=== PATIENT | male | born 1940 | race Caucasian/White ===

== ENCOUNTER 2018-06-02 10:51 | Inpatient (IN) | payer MEDICARE, BC ==
--- NOTE | 2018-06-02 11:28 | ED ---
Altered Mental Status - HPI Summary HPI Summary: A 77 y/o M with recent dementia dx presents to ED with c/o increased AMS onset past day. Per , the patient couldn't (or wouldn't) get up out of bed last night. This AM, he was able to get out of bed with assistance. Associated sx: dehydration. Denies: n/v/d, dysuria, cough. He has not been agitated and violent recently, but he has been more sleep recently. Last week, he had a mechanical fall in the snow and needed assistance getting up. No recent illness and no one at home is ill. Their daughter who is a nurse comes by to help, but otherwise, they do not have anyone coming to the house. - History Of Current Complaint Chief Complaint: EDAltMentalStatus Stated Complaint: WEAKNESS Time Seen by Provider: 06/02/18 11:02 Hx Obtained From: Family/[employer] - , Medical Records Onset/Duration: Still Present Timing: Constant Severity Initially: Moderate Severity Currently: Moderate Character: Confusion, Lethargy - sleepy Associated Signs And Symptoms: Negative: Nausea, Vomiting - Allergies/Home Medications Allergies/Adverse Reactions: Allergies Allergy/AdvReac Type Severity Reaction Status Date / Time No Known Allergies Allergy Verified 04/27/16 14:05 Home Medications: Home Medications Donepezil TAB* [Aricept 5 MG TAB*] 10 mg PO DAILY 06/02/18 [History Confirmed ] Escitalopram (NF) [Lexapro 10 mg (NF)] 10 mg PO DAILY 06/02/18 [History Confirmed 06/02/18] Irbesartan (NF) [Avapro (NF)] 300 mg PO DAILY 06/02/18 [History Confirmed ] Memantine TAB* [Namenda TAB*] 5 mg PO DAILY 06/02/18 [History Confirmed 06/02/18 ] QUEtiapine TAB* [Seroquel 25 MG TAB*] 75 mg PO DAILY 06/02/18 [History Confirmed 06/02/18] Rosuvastatin (NF) [Crestor (NF)] 20 mg PO QPM 06/02/18 [History Confirmed ] PMH/Surg Hx/FS Hx/Imm Hx Previously Healthy: No Endocrine/Hematology History: Denies: Hx Diabetes Cardiovascular History: Reports: Hx Hypertension - ON MEDS Denies: Hx Pacemaker/ICD History: Denies: Hx Renal Disease Sensory History: Reports: Hx Contacts or Glasses - readers, Hx Hearing Aid Opthamlomology History: Reports: Hx Contacts or Glasses - readers Neurological History: Reports: Other Neuro Impairments/Disorders - CVA or TIA Psychiatric History: Denies: Hx Panic Disorder - Cancer History Cancer Type, Location and Year: PROSTATE - PROSTECTOMY - Surgical History Surgery Procedure, Year, and Place: PROSTECTOMY;. ROTATOR CUFF SURGERY;. EYE SURGERIES - REPAIRED MACULAR HOLE &CATARACTS;. BIOPSIES;-TEMPORAL ARTHRITIS Infectious Disease History: No Infectious Disease History: Denies: Traveled Outside the [place] in Last 30 Days - Family History Family History: father: [place] - Social History Occupation: Works From/At Home - SELF Lives: With Family Alcohol Use: Daily Alcohol Amount: 3-4 beers per day Hx Substance Use: No Substance Use Type: Reports: None Hx Tobacco Use: No Smoking Status (MU): Never Smoked Tobacco Review of Systems Positive: Other - pos: dehydration. Negative: Fever, Chills Negative: Erythema Negative: Sore Throat Negative: Chest Pain Negative: Shortness Of Breath, Cough Negative: Abdominal Pain, Vomiting, Nausea Negative: dysuria, hematuria Negative: Myalgia, Edema Negative: Rash Neurological: Other - pos: confusion/AMS. neg: dizziness All Other Systems Reviewed And Are Negative: Yes Physical Exam - Summary Physical Exam Summary: Constitutional: Well-developed, Well-nourished, Alert. (-) Distressed. Pt gives inappropriate answers but there is no focal deficits. With coaching he is able to perform tasks. Skin: Warm, Dry HENT: Normocephalic; Atraumatic Eyes: Conjunctiva normal Neck: Musculoskeletal ROM normal neck. (-) JVD, (-) Stridor, (-) Tracheal deviation Cardio: Rhythm regular, rate normal, Heart sounds normal; Intact distal pulses; The pedal pulses are 2+ and symmetric. Radial pulses are 2+ and symmetric. (-) Murmur Pulmonary/Chest wall: Effort normal. (-) Respiratory distress, (-) Wheezes, (-) Rales Abd: Soft. (-) Tenderness, (-) Distension, (-) Guarding, (-) Rebound Musculoskeletal: (-) Edema Lymph: (-) Cervical adenopathy Neuro: Alert, Oriented x3, Strength normal, Cranial nerves II-XII are grossly intact. (-) Dysmetria, (-) Nystagmus, (-) Ataxia by finger to nose testing, (-) Sensory deficit. Pt gives inappropriate answers but there is no focal deficits. With coaching he is able to perform tasks. Psych: Mood and affect Normal Triage Information Reviewed: Yes Vital Signs On Initial Exam: Initial Vitals Temp Pulse Resp BP Pulse Ox 98 F 77 18 140/80 95 06/02/18 11:04 06/02/18 11:04 06/02/18 11:04 06/02/18 11:04 06/02/18 11:04 Vital Signs Reviewed: Yes - [place] Coma Scale Best Eye Response: 4 - Spontaneous Best Motor Response: 6 - Obeys Commands Best Verbal Response: 5 - Oriented Coma Scale Total: 15 Diagnostics - Vital Signs Vital Signs Temp Pulse Resp BP Pulse Ox 06/02/18 11:04 98 F 77 18 140/80 95 - Laboratory Result Diagrams: 06/02/18 12:14 06/02/18 12:14 Lab Statement: Any lab studies that have been ordered have been reviewed, and results considered in the medical decision making process. - CT BRAIN CT CT Interpretation Completed By: Radiologist Summary of CT Findings: IMPRESSION: Central and cortical atrophy. There is no evidence of intracranial mass or hemorrhage. ED provider has reviewed this report. - EKG 11:27 Cardiac Rate: NL - 87bpm EKG Rhythm: Sinus Rhythm Summary of EKG Findings: no STEMI Re-Evaluation - Re-Evaluation first re-eval Re-Evaluation Time: 16:15 Change: Worse Comment: Patient is getting agitated. has agreed to keep him for observation tonight to evaluate his urine and rule out UTI. Altered Mental Statu Course/Dx - Course Course Of Treatment: Pt is a 77 y/o M with recent dementia dx presenting with increased AMS onset past day. Per , the patient couldn't (or wouldn't) get up out of bed last night. This AM, he was able to get out of bed with assistance. Associated sx: dehydration. Denies: n/v/d, dysuria, cough. He has not been agitated and violent recently, but he has been more sleepy recently. Their daughter who is a nurse comes by to help, but otherwise, they do not have anyone coming to the house. Flu is negative. Test results with no significant abnormalities except for elevated WBC count. Upon re-evaluation patient is getting agitated. Patients has agreed to keep him for observation tonight to evaluate his urine and rule out UTI. Patient did not allow for successful straight catheterization and provided a contaminated urine sample in hat with stool and urine. Rule out UTI. We discussed patient care with Dr. Mejia, hospitalist, and they agreed to admit the patient to [facility] [place]. Patient will be admitted to [facility] to rule-out UTI. Dx delirium and elevated WBC count. The patient is agreeable with this plan. - Diagnoses Provider Diagnoses: Delirium, Elevated WBC count - Provider Notifications Discussed Care Of Patient With: Eliu Mejia Time Discussed With Above Provider: 16:30 Instructed by Provider To: Admit As Inpatient Discharge - Sign-Out/Discharge Documenting (check all that apply): Patient Departure - admit to [facility] Patient Received Moderate/Deep Sedation with Procedure: No - Discharge Plan Condition: Stable Disposition: ADMITTED TO [facility] Referrals: Kvng Leslie MD [Primary Care Provider] - 2 Days Additional Instructions: Return to the emergency department for changing or worsening symptoms. Follow up with your primary care provider in 2-3 days. - Attestation Statements Document Initiated by Scribe: Yes Documenting Scribe: Lyn Rubio Provider For Whom Scribe is Documenting (Include Credential): Dr. Joseph Guerrero MD Scribe Attestation: Lyn Manuel, scribed for Dr. Joseph Guerrero MD on 06/02/18 at 1620. Status of Scribe Document: Ready
[2018-06-02 12:22] LABS: ABS Basophils 0.1 10^3/ul (0-0.2); ABS Eosinophils 0 10^3/ul (0-0.6); ABS Lymphocytes 0.8 10^3/ul (1.0-4.8); ABS Neutrophils 10.1 10^3/ul (1.5-7.7); ABS Nucleated RBC 0 10^3/ul; Eosinophil % 0.4 %; Hematocrit 44 % (42-52); Hemoglobin 14.4 g/dl (14.0-18.0); Mean Corpuscular HGB Conc 33 g/dl (31-36); Mean Corpuscular Hemoglobin 28 pg (27-31); Mean Corpuscular Volume 86 fL (80-94); Mean Platelet Volume 8.5 fL (7.4-10.4); Nucleated Red Blood Cells % 0; Platelet Count 227 10^3/ul (150-450); Red Blood Count 5.13 10^6/ul (4.00-5.40); Red Cell Distribution Width 15 % (10.5-15)
[2018-06-02 12:40] LABS: ALT 44 U/L (7-52); Albumin 3.6 g/dL (3.2-5.2); Albumin/Globulin Ratio 0.8 (1-3); Alkaline Phosphatase 236 U/L (34-104); Blood Urea Nitrogen 22 mg/dL (6-24); CO2 Carbon Dioxide 25 mmol/L (22-32); Calcium 8.9 mg/dL (8.6-10.3); Chloride 104 mmol/L (101-111); EGFR African American 73.9 (>60); EGFR Non-African American 61.1 (>60); Globulin 4.6 g/dL (2-4); Glucose 172 mg/dL (70-100); Sodium 133 mmol/L (135-145); Total Protein 8.2 g/dL (6.4-8.9)
[2018-06-02 12:41] LABS: Troponin I 0.01 ng/mL (<0.04)
[2018-06-02 13:25] LABS: TSH (Thyroid Stimulating Horm) 1.13 mcIU/mL (0.34-5.60)
[2018-06-02 13:49] LABS: Anion Gap 4 mmol/L (2-11)
[2018-06-02] MEDS ORDERED: NS 0.9% 1000 ML** 2,000 ML IV ONE (14:00)
[2018-06-02 14:44] LABS: Influenza A Molecular NEGATIVE (Negative); Influenza B Molecular NEGATIVE (Negative)
[2018-06-02] MEDS ORDERED: Haloperidol TAB* 5 MG PO ONE (16:20)
[2018-06-02] MEDS ORDERED: Acetaminophen TAB* 325 MG PO PRN (17:24)
[2018-06-02] MEDS ORDERED: hydrALAZINE IV* 20 MG/ML VIAL IV SLOW PU PRN (18:39)
[2018-06-02 18:49] LABS: Magnesium 2.2 mg/dL (1.9-2.7); Potassium Redraw 3.9 mmol/L (3.5-5.0)
--- NOTE | 2018-06-02 21:03 | HP ---
CC: Dr. Kvng Leslie; Dr. Teja Beltran * MEDICINE HISTORY AND PHYSICAL: DATE OF ADMISSION: 06/02/18 PROVIDER: Ailyn Aldrich NP ATTENDING PHYSICIAN: Dr. Mejia * (dictated by Ailyn Aldrich NP). PRIMARY CARE PROVIDER: Dr. Kvng Leslie. OUTPATIENT NEUROLOGIST: Dr. Teja Beltran. CHIEF COMPLAINT: Altered mental status and weakness. HISTORY OF PRESENT ILLNESS: Mr. Beth is a 77-year-old male who presents today with concern for increased confusion and decline in ADLs as of yesterday. At baseline, this gentleman does have dementia, but per his who provides the history for this encounter, at baseline she is able to help him by prompting him with eating and self-care and he is able to do most of it on his own with verbal prompts. However, she reports that since yesterday, he is requiring more assistance getting out of bed, having actually refused to get out of bed yesterday. Today, he was unable to do so on his own, requiring heavy assist. He also was not responding like he normally does and appears to be more delusional than usual. She thinks it is secondary to dehydration, stating that he does eat and drink, but probably does not drink as much as he should. She reports that last week he did have a mechanical fall and a month ago he also had a fall; however, she provides all care on her own, has no outside agencies helping her. Her daughter and other family members do assist when able. She denies that he has had any recent fever, chills, cough, or cold or flu symptoms that she has noticed. She denies that he has had any verbal complaints of anything or appeared to be uncomfortable. Here in the ER, Mr. Beth became somewhat combative as the clinical staff attempted the workup including attempts to get urine sample. He was noted to have mild leukocytosis. Given this acute change, his living environment and presence of leukocytosis, Hospital Medicine was consulted for admission. PAST MEDICAL HISTORY: 1. Dementia. 2. Hypertension. 3. Hyperlipidemia. 4. History of prostate cancer, status post prostatectomy. 5. History of rotator cuff repair. HOME MEDICATIONS: 1. Memantine 5 mg daily. 2. Irbesartan 300 mg daily. 3. Escitalopram 10 mg daily. 4. Donepezil 10 mg daily. 5. Quetiapine 75 mg daily. 6. Rosuvastatin 20 mg q.p.m. ALLERGIES: No known allergies. FAMILY HISTORY: His reports that the patient's mother had history of heart failure and dementia and his father had history of prostate cancer. SOCIAL HISTORY: She denies that he ever was a smoker. She reports that he was previously a person who drank alcohol, but has not done so in several months. Denies any history of illicit drug use. Again, she is his primary e m assembler. She does have a daughter who lives nearby and other family who do attempt to help. 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 His healthcare proxies are his and his daughter, Laurel Urbina. REVIEW OF SYSTEMS: Limited and mostly unobtainable secondary to dementia. Any obtainable history was given by his and is included in the HPI. PHYSICAL EXAMINATION VITAL SIGNS: Temperature 98, pulse rate 82, respiratory rate 26, blood pressure 176/82, and O2 saturation is 91% on room air. HEENT: Head is atraumatic, normocephalic. Pupils are equal, round, and reactive to light. Extraocular movements are intact. The patient does not allow me to examine oral cavity. NECK: Full range of motion noted to the neck. No JVD noted. No lymphadenopathy appreciated. LUNGS: Clear anteriorly without notable wheezes or rales. He does not cooperate with allowing for posterior lung assessment. CARDIAC: Regular rate and rhythm with normal S1, S2 heart sounds. No murmur appreciated. No peripheral edema noted. Distal pulses are 2+ and symmetric. ABDOMEN: Soft, protuberant, but nontender with no guarding or rebound tenderness. No hepatosplenomegaly noted. MUSCULOSKELETAL: There is active movement of all 4 extremities as there is no clubbing or cyanosis. NEURO: He is alert. He is intermittently responsive to his name. He does not cooperate with neuro exam. He appears to have equal strength in bilateral hands as evidenced by gripping on my hands. He is observed moving both of his legs. Speech is somewhat incoherent and inappropriate. Conversation does not match what is being discussed. SKIN: Limited in assessment, but no visible skin abnormalities to the extremities that I am able to see. DIAGNOSTIC STUDIES/LAB DATA: CBC: WBC 12.0, hemoglobin 14.4, hematocrit 44, platelet count 227. CMP: Sodium 133, potassium not run, chloride 104, carbon dioxide 25, BUN 22, creatinine 1.16, glucose 172, lactic acid 1.3, calcium 8.9. Total bilirubin is 1, ALT 44, alk phos 236. Troponin 0.01. TSH is 1.13. Flu swab negative. CT brain shows central and cortical atrophy with no evidence of intracranial mass or hemorrhage. EKG shows sinus rhythm with abnormal R-wave progression, rate of 87. No significant ST or T-wave changes. Old medical records were reviewed. ASSESSMENT AND PLAN: This is a 77-year-old male, who presents today with concern for altered mental status and weakness with a leukocytosis that may be indicative of an acute infection or a process. He will be admitted under observation. Plan is as follows: 1. Altered mental status. Source is unclear. This may represent a developing infection. With his tachypnea and hypoxia, although this may be secondary to the patient's agitation, I will also obtain a chest x-ray to evaluate for pulmonary processes. Some of his labs have hemolyzed. We will reattempt them possibly in the morning if necessary, also checking a B12 and thiamine level as well as getting a mag level to fully evaluate for electrolyte and vitamin deficiencies. Staff has been unable to obtain a urine here in the ER and he did not cooperate with a straight cath and it was difficult to advance the catheter to obtain the urine specimen likely because of his history of prostate cancer. We will try a condom catheter, but may have to reattempt to straight cath if unable to obtain the urine. We will perform neuro checks, continue his home medications of donepezil, memantine, and continue to monitor closely. 2. Weakness. This is likely secondary to his altered mental status. He has had some falls recently. He is actively moving all extremities. Per his , he is walking with no guarding or evidence of joint instability or acute pain. We will attempt to try a PT and OT eval to see if there any supportive techniques or services that we can offer to his when the patient is well enough to return home if that should be the case. 3. Dementia. Again, we will continue his home donepezil, memantine, as well as his Seroquel and Celexa as he has had behavioral disturbances. He did receive Haldol here in the ER due to combative behavior. I will hold on ordering any further medications in the interim with the hope that his usual Seroquel and other medications will be enough for him. However, he is in a different environment, so should he need chemical restraint, we will evaluate the need in that moment and attempt redirection before utilizing any further Haldol. He may also benefit from an increase in his Seroquel or additional agents. 4. Leukocytosis. This may be reactive to recent illness or falls, but it may also be secondary to acute illness. Again, we will evaluate for causes as per above. 5. Hypertension. He is currently hypertensive likely secondary to agitation. Continue home irbesartan. Consider addition of p.r.n. hydralazine as needed if the patient remains significantly hypertensive. 6. Hyperlipidemia. Continue rosuvastatin. 7. History of prostate cancer. Follow up as an outpatient as directed. 8. FEN: Heart-healthy diet. 9. DVT prophylaxis: Subcu Lovenox. 10. Code status: He is a full code. I did discuss the MOLST form with his and she would like it discuss it further with her family. She was given a copy and we discussed it verbally and went through the document and let her know that we would be available to further discuss if she had any further questions. 11. Disposition: Unclear at this time. He came from home. The goal would be to get him back to his baseline so that his would be able to help care for him safely at home. We may need to consider subacute rehab or placement should there be concern for home safety. TIME SPENT: Approximately 65 minutes was spent on this admission, greater than half that time was spent [id number] with the patient and his obtaining history and physical, performing physical examination, and reviewing the plan of care. Plan of care was also reviewed with my attending, Dr. Mejia, who is in agreement. AILYN ALDRICH, CAMPOS [id number]/CPS #: [id number] EDITH
[2018-06-02] MEDS: Atorvastatin* 40 MG TAB PO SCH (22:44)
[2018-06-02] MEDS: Enoxaparin(*) 40 MG/0.4 ML SYR SUBCUT SCH (22:44)
[2018-06-02 23:20] LABS: Urine Appearance Cloudy; Urine Bacteria Absent (Absent); Urine Bilirubin Negative (Negative); Urine Blood 2+ (Negative); Urine Color Yellow; Urine Glucose 2+(150 mg/dL) (Negative); Urine Ketones Negative (Negative); Urine Nitrite Negative (Negative); Urine Protein Negative (Negative); Urine Red Blood Cell 3+(>10/hpf) (Absent); Urine Specific Gravity 1.024 (1.010-1.030); Urine Squamous Epithelial Cell Present (Absent); Urine Urobilinogen Negative (Negative); Urine White Blood Cell Trace(0-5/hpf) (Absent)
[2018-06-03 07:21] LABS: ABS Basophils 0 10^3/ul (0-0.2); ABS Eosinophils 0.1 10^3/ul (0-0.6); ABS Lymphocytes 1.3 10^3/ul (1.0-4.8); ABS Monocytes 1.1 10^3/ul (0-0.8); ABS Neutrophils 8.2 10^3/ul (1.5-7.7); ABS Nucleated RBC 0 10^3/ul; Hematocrit 42 % (42-52); Hemoglobin 14.1 g/dl (14.0-18.0); Lymphocyte % 12.5 %; Mean Corpuscular HGB Conc 34 g/dl (31-36); Mean Corpuscular Hemoglobin 29 pg (27-31); Mean Corpuscular Volume 85 fL (80-94); Mean Platelet Volume 7.7 fL (7.4-10.4); Nucleated Red Blood Cells % 0.1; Platelet Count 185 10^3/ul (150-450); Red Blood Count 4.93 10^6/ul (4.00-5.40); Red Cell Distribution Width 15 % (10.5-15); White Blood Count 10.8 10^3/ul (3.5-10.8)
[2018-06-03 07:38] LABS: BUN/Creatinine Ratio 16.2 (8-20); Calcium 9.1 mg/dL (8.6-10.3); EGFR African American 82.7 (>60); EGFR Non-African American 68.3 (>60)
[2018-06-03] MEDS: QUEtiapine TAB* 25 MG PO SCH ×3 (10:17→22:05)
[2018-06-03] MEDS: Donepezil TAB* 5 MG PO SCH (10:17)
[2018-06-03] MEDS: Citalopram TAB* 20 MG PO SCH (10:17)
[2018-06-03] MEDS: Losartan TAB* 25 MG PO SCH (10:17)
[2018-06-03] MEDS: Memantine TAB* 5 MG PO SCH (10:17)
--- NOTE | 2018-06-03 12:55 | PN ---
Subjective Date of Service: 06/03/18 Interval History: Mr. Beth is not able to offer meaningful complaint today but appears in no acute distress. Objective Active Medications: Acetaminophen (Tylenol Tab*) 650 mg PO Q4H PRN Atorvastatin Calcium (Lipitor*) 40 mg PO QPM BRAEDEN Citalopram Hydrobromide (Celexa Tab*) 20 mg PO DAILY BRAEDEN Donepezil HCl (Aricept Tab*) 10 mg PO DAILY BRAEDEN Enoxaparin Sodium (Lovenox(*)) 40 mg SUBCUT Q24H BRAEDEN Hydralazine HCl (Apresoline Iv*) 5 mg IV SLOW PU Q6H PRN Losartan Potassium (Cozaar Tab*) 100 mg PO DAILY BRAEDEN Memantine (Namenda Tab*) 5 mg PO DAILY BRAEDEN Quetiapine Fumarate (Seroquel Tab*) 75 mg PO BEDTIME BRAEDEN Vital Signs - 8 hr 06/03/18 06/03/18 07:15 11:33 Temperature 98.2 F 98.0 F Pulse Rate 77 77 Respiratory 20 20 Rate Blood Pressure 140/65 124/68 (mmHg) O2 Sat by Pulse 97 98 Oximetry Oxygen Devices in Use Now: None Appearance: Male lying in bed in NAD Eyes: No Scleral Icterus Ears/Nose/Mouth/Throat: Mucous Membranes Moist Respiratory: Symmetrical Chest Expansion and Respiratory Effort, Clear to Auscultation Cardiovascular: NL Sounds; No Murmurs; No JVD, No Edema Abdominal: NL Sounds; No Tenderness; No Distention Extremities: No Edema Skin: No Rash or Ulcers Neurological: - - Alert, mumbles when spoken to, moves all extremities spontaneously Nutrition: Taking PO's Result Diagrams: 06/03/18 06:52 06/03/18 06:52 Microbiology and Other Data: . Assess/Plan/Problems-Billing Assessment: Mr. Beth is a 78 yo M with a PMH of dementia and HTN who was admitted on with delirium and weakness. - Patient Problems (1) Delirium Comment: - ? toxic metabolic encephalopathy though no inciting cause found - CT brain negative. No evidence of infection, UA negative, afebrile. (2) HLD (hyperlipidemia) Comment: - Continue atorvastatin (3) Hypertension Comment: - BP 120-130s - Continue losartan (4) Dementia Comment: - Continue namenda and home seroquel - Supportive care (5) DVT prophylaxis Comment: - Lovenox (6) Full code status Comment: Status and Disposition: Convert to inpatient. Anticipate need for SNF.
[2018-06-03] MEDS: Atorvastatin* 40 MG TAB PO SCH (18:01)
[2018-06-03] MEDS: Enoxaparin(*) 40 MG/0.4 ML SYR SUBCUT SCH (18:01)
--- NOTE | 2018-06-04 07:20 | PN ---
Subjective Date of Service: 06/04/18 Interval History: Mr. Beth is up and ambulating. He offers no complaint when asked. Objective Active Medications: Acetaminophen (Tylenol Tab*) 650 mg PO Q4H PRN Atorvastatin Calcium (Lipitor*) 40 mg PO QPM BRAEDEN Citalopram Hydrobromide (Celexa Tab*) 20 mg PO DAILY BRAEDEN Donepezil HCl (Aricept Tab*) 10 mg PO DAILY BRAEDEN Enoxaparin Sodium (Lovenox(*)) 40 mg SUBCUT Q24H BRAEDEN Hydralazine HCl (Apresoline Iv*) 5 mg IV SLOW PU Q6H PRN Losartan Potassium (Cozaar Tab*) 100 mg PO DAILY BRAEDEN Memantine (Namenda Tab*) 5 mg PO DAILY BRAEDEN Quetiapine Fumarate (Seroquel Tab*) 75 mg PO BEDTIME BRAEDEN Vital Signs: Temp Pulse Resp BP Pulse Ox 98.3 F 82 19 122/55 94 06/04/18 03:06 06/04/18 03:06 06/04/18 03:06 06/04/18 03:06 06/04/18 03:06 Oxygen Devices in Use Now: None Appearance: Male lying in bed in NAD Eyes: No Scleral Icterus Ears/Nose/Mouth/Throat: Mucous Membranes Moist Neck: Trachea Midline Respiratory: Symmetrical Chest Expansion and Respiratory Effort, Clear to Auscultation Cardiovascular: NL Sounds; No Murmurs; No JVD, No Edema Abdominal: NL Sounds; No Tenderness; No Distention Extremities: No Edema Skin: No Rash or Ulcers Neurological: NL Muscle Strength and Tone, - - Alert, oriented to self Nutrition: Taking PO's Result Diagrams: 06/03/18 06:52 06/03/18 06:52 Microbiology and Other Data: . Assess/Plan/Problems-Billing Assessment: Mr. Beth is a 78 yo M with a PMH of dementia and HTN who was admitted on with delirium and weakness who now appears back to baseline per . - Patient Problems (1) Delirium Comment: - Resolved - ? toxic metabolic encephalopathy though no inciting cause found - CT brain negative. No evidence of infection, UA negative, afebrile. (2) HLD (hyperlipidemia) Comment: - Continue atorvastatin (3) Hypertension Comment: - BP 120-130s - Continue losartan (4) Dementia Comment: - Continue namenda and home seroquel - Supportive care (5) DVT prophylaxis Comment: - Lovenox (6) Full code status Comment: Status and Disposition: Discharge to home with .
[2018-06-04] MEDS: Citalopram TAB* 20 MG PO SCH (09:04)
[2018-06-04] MEDS: Donepezil TAB* 5 MG PO SCH (09:04)
[2018-06-04] MEDS: Losartan TAB* 25 MG PO SCH (09:04)
[2018-06-04] MEDS: Memantine TAB* 5 MG PO SCH (09:05)
[2018-06-04] MEDS: Enoxaparin(*) 40 MG/0.4 ML SYR SUBCUT SCH (17:20)
[2018-06-04] MEDS: Atorvastatin* 40 MG TAB PO SCH (17:20)
--- NOTE | 2018-06-04 19:50 | DS ---
CC: Dr. Leslie * [facility] MEDICINE DISCHARGE SUMMARY: DATE OF ADMISSION: 06/02/18 DATE OF DISCHARGE: 06/04/18 PRIMARY CARE PHYSICIAN: Dr. Leslie. ATTENDING PHYSICIAN: Dr. Aguilar * (dictation provided by Kimberlyn Cox NP). PRIMARY DIAGNOSIS: Toxic metabolic encephalopathy, unclear cause. SECONDARY DIAGNOSES: 1. Advanced dementia. 2. Hypertension. 3. Hyperlipidemia. 4. History of prostate cancer. 5. History of rotator cuff repair. MEDICATIONS: At the time of discharge are: 1. Memantine 5 mg p.o. daily. 2. Irbesartan 300 mg p.o. daily. 3. Escitalopram 10 mg p.o. daily. 4. Donepezil 10 mg p.o. daily. 5. Quetiapine 75 mg p.o. daily. 6. Rosuvastatin 20 mg p.o. q.p.m. HOSPITAL COURSE: Mr. Beth is a 78-year-old male with past medical history of advanced dementia who presented to the hospital on 06/02/18 with concern for altered mental status and weakness. Please see the dictated H and P from Gabriella Flores NP, for complete details. In brief, the patient's reported that since the day prior to admission he had been requiring more assistance to get out of bed and as of the day of admission was unable to do so on his own. He is also not responding as he normally would and has seemed more delusional. He has advanced dementia at baseline and is minimally interactive. In the emergency room, Mr. Beth had labs which showed mildly elevated white blood cell count of 12.0, but the remainder of his labs were unremarkable. His urinalysis showed no evidence of infection. His flu swab was negative. CT brain showed no intracranial mass or hemorrhage. Chest x-ray showed no acute process. Mr. Beth was observed in the hospital. After hydration, he was somewhat more interactive and able to walk a few steps yesterday. Today, he has been able to ambulate down the hallway with the use of a walker and significant prompting and appears to be back to baseline. It is my suspicion that he had toxic metabolic encephalopathy perhaps related to dehydration or early viral illness, the workup here has been negative. Fortunately, he is back to baseline. His family will take him home today. DISPOSITION: To home. DIET: Regular. ACTIVITY: As tolerated. FOLLOWUP PLANS: Please follow up with Dr. Leslie per routine within a week after this hospitalization. KIMBERLYN COX NP [id number]/CPS #: [id number] ADDENDUM: Patient was unable to get into the car at the time of attempted discharge. Family not able to care for patient at home and are opting for usp placement with comfort care. EDITH
[2018-06-04] MEDS: QUEtiapine TAB* 25 MG PO SCH (21:54)
[2018-06-05] MEDS: Citalopram TAB* 20 MG PO SCH (08:45)
[2018-06-05] MEDS: Donepezil TAB* 5 MG PO SCH (08:45)
[2018-06-05] MEDS: Losartan TAB* 25 MG PO SCH (08:45)
[2018-06-05] MEDS: Memantine TAB* 5 MG PO SCH (08:45)
--- NOTE | 2018-06-05 13:15 | PN ---
Subjective Date of Service: 06/05/18 Interval History: Mr. Beth is not able to offer complaint but appears to be in NAD Objective Active Medications: Acetaminophen (Tylenol Tab*) 650 mg PO Q4H PRN Atorvastatin Calcium (Lipitor*) 40 mg PO QPM [facility]RA[facility] Citalopram Hydrobromide (Celexa Tab*) 20 mg PO DAILY BRAEDEN Donepezil HCl (Aricept Tab*) 10 mg PO DAILY BRAEDEN Enoxaparin Sodium (Lovenox(*)) 40 mg SUBCUT Q24H BRAEDEN Hydralazine HCl (Apresoline Iv*) 5 mg IV SLOW PU Q6H PRN Losartan Potassium (Cozaar Tab*) 100 mg PO DAILY BRAEDEN Memantine (Namenda Tab*) 5 mg PO DAILY BRAEDEN Quetiapine Fumarate (Seroquel Tab*) 75 mg PO BEDTIME BRAEDEN Vital Signs: Temp Pulse Resp BP Pulse Ox 98.1 F 85 20 139/85 93 06/05/18 11:51 06/05/18 11:51 06/05/18 11:51 06/05/18 11:51 06/05/18 11:51 Oxygen Devices in Use Now: None Appearance: Male lying in bed in NAD Eyes: No Scleral Icterus Ears/Nose/Mouth/Throat: Mucous Membranes Moist Neck: Trachea Midline Respiratory: Symmetrical Chest Expansion and Respiratory Effort, Clear to Auscultation Cardiovascular: NL Sounds; No Murmurs; No JVD, No Edema Abdominal: NL Sounds; No Tenderness; No Distention Extremities: No Edema Skin: No Rash or Ulcers Neurological: NL Muscle Strength and Tone, - - Alert, not oriented Nutrition: Taking PO's Result Diagrams: 06/03/18 06:52 06/03/18 06:52 Microbiology and Other Data: . Assess/Plan/Problems-Billing Assessment: Mr. Beth is a 78 yo M with a PMH of dementia and HTN who was admitted on with delirium and weakness who now appears back to baseline per . - Patient Problems (1) Delirium Comment: - Resolved - ? toxic metabolic encephalopathy though no inciting cause found - CT brain negative. No evidence of infection, UA negative, afebrile. (2) HLD (hyperlipidemia) Comment: - Continue atorvastatin (3) Hypertension Comment: - BP 120-130s - Continue losartan (4) Dementia Comment: - Continue namenda and home seroquel - Supportive care (5) DVT prophylaxis Comment: - Lovenox (6) Full code status Comment: Status and Disposition: unable to take care of patient at home, unable to transport home. Family now opting for comfort care due to advanced dementia.
[2018-06-05] MEDS: Atorvastatin* 40 MG TAB PO SCH (17:55)
[2018-06-05] MEDS: Enoxaparin(*) 40 MG/0.4 ML SYR SUBCUT SCH (18:00)
[2018-06-05] MEDS: QUEtiapine TAB* 25 MG PO SCH (19:28)
--- NOTE | 2018-06-05 23:08 | CONSULT ---
Palliative / Hospice Consult Ordering Provider: Kimberlyn Cox - PCP-Mariama - Subjective Code Status: DNR Advance Directives Location: With Family MOL[facility] Part A Completed: Yes - on chart MOLST Part E Completed:: Yes - on chart - History or Present Illness History or Present Illness: 77 yo male with severe dementia presented to ER with increased confusion. felt his dementia had been rapidly progressing over the last few days. He has had 2 falls over the last month. PMH is significant for HTN, hyperlipidemia, prostate ca in 2002 and sleep apnea. All history is from the and old records pt is unable to contribute because of his dementia. No tobacco use, some etoh use years earlier no drug use. 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 Ekg inf PA old, CXR neg, CT brain central and cortical hypertrophy. BUN/Cr 17/1.05 egfr 68.3,alk phos 236, tprot 8.2 & alb 3.6- last 3 results were hemolyzed. describes as non verbal, sleeping more, decreased appetite, not feeding himself anymore, not continent, he will wander at times and has hallucinations at times. Was being discharged yesterday but pt would not get in the car and yelled No was brought back to the hospital. No obvious illness has been found for his sudden behavioral change. Lab Values: Laboratory Last Values WBC 10.8 10^3/ul (3.5-10.8) 06/03/18 06:52 RBC 4.93 10^6/ul (4.00-5.40) 06/03/18 06:52 Hgb 14.1 g/dl (14.0-18.0) 06/03/18 06:52 Hct 42 % (42-52) 06/03/18 06:52 MCV 85 fL (80-94) 06/03/18 06:52 MCH 29 pg (27-31) 06/03/18 06:52 MCHC 34 g/dl (31-36) 06/03/18 06:52 RDW 15 % (10.5-15) 06/03/18 06:52 Plt Count 185 10^3/ul (150-450) 06/03/18 06:52 MPV 7.7 fL (7.4-10.4) 06/03/18 06:52 Neut % (Auto) 75.8 % 06/03/18 06:52 Lymph % (Auto) 12.5 % 06/03/18 06:52 [place] % (Auto) 10.4 % 06/03/18 06:52 Eos % (Auto) 1.0 % 06/03/18 06:52 Baso % (Auto) 0.3 % 06/03/18 06:52 Absolute Neuts (auto) 8.2 10^3/ul (1.5-7.7) H 06/03/18 06:52 Absolute Lymphs (auto) 1.3 10^3/ul (1.0-4.8) 06/03/18 06:52 Absolute Monos (auto) 1.1 10^3/ul (0-0.8) H 06/03/18 06:52 Absolute Eos (auto) 0.1 10^3/ul (0-0.6) 06/03/18 06:52 Absolute Basos (auto) 0 10^3/ul (0-0.2) 06/03/18 06:52 Absolute Nucleated RBC 0 10^3/ul 06/03/18 06:52 Nucleated RBC % 0.1 06/03/18 06:52 Sodium 135 mmol/L (135-145) 06/03/18 06:52 Potassium 4.0 mmol/L (3.5-5.0) 06/03/18 06:52 Chloride 106 mmol/L (101-111) 06/03/18 06:52 Carbon Dioxide 21 mmol/L (22-32) L 06/03/18 06:52 Anion Gap 8 mmol/L (2-11) 06/03/18 06:52 BUN 17 mg/dL (6-24) 06/03/18 06:52 Creatinine 1.05 mg/dL (0.67-1.17) 06/03/18 06:52 Est GFR ( Amer) 82.7 (>60) 06/03/18 06:52 Est GFR (Non-Af Amer) 68.3 (>60) 06/03/18 06:52 BUN/Creatinine Ratio 16.2 (8-20) 06/03/18 06:52 Glucose 97 mg/dL (70-100) 06/03/18 06:52 Lactic Acid 1.3 mmol/L (0.5-2.0) 06/02/18 12:14 Calcium 9.1 mg/dL (8.6-10.3) 06/03/18 06:52 Magnesium 2.2 mg/dL (1.9-2.7) 06/02/18 18:22 Total Bilirubin 1.00 mg/dL (0.2-1.0) 06/02/18 12:14 AST 30 U/L (13-39) 06/02/18 18:22 ALT 44 U/L (7-52) 06/02/18 12:14 Alkaline Phosphatase 236 U/L (34-104) H 06/02/18 12:14 Troponin I 0.01 ng/mL (<0.04) 06/02/18 12:14 Total Protein 8.2 g/dL (6.4-8.9) 06/02/18 12:14 Albumin 3.6 g/dL (3.2-5.2) 06/02/18 12:14 Globulin 4.6 g/dL (2-4) H 06/02/18 12:14 Albumin/Globulin Ratio 0.8 (1-3) L 06/02/18 12:14 Vitamin B12 492 pg/mL (180-914) 06/02/18 12:14 TSH 1.13 mcIU/mL (0.34-5.60) 06/02/18 12:14 Urine Color Yellow 06/02/18 22:49 Urine Appearance Cloudy 06/02/18 22:49 Urine pH 5.0 (5-9) 06/02/18 22:49 Ur Specific Griffin 1.024 (1.010-1.030) 06/02/18 22:49 Urine Protein Negative (Negative) 06/02/18 22:49 Urine Ketones Negative (Negative) 06/02/18 22:49 Urine Blood 2+ (Negative) A 06/02/18 22:49 Urine Nitrate Negative (Negative) 06/02/18 22:49 Urine Bilirubin Negative (Negative) 06/02/18 22:49 Urine Urobilinogen Negative (Negative) 06/02/18 22:49 Ur Leukocyte Esterase Negative (Negative) 06/02/18 22:49 Urine WBC (Auto) Trace(0-5/hpf) (Absent) 06/02/18 22:49 Urine RBC (Auto) 3+(>10/hpf) (Absent) A 06/02/18 22:49 Ur Squamous Epith Cells Present (Absent) A 06/02/18 22:49 Urine Bacteria Absent (Absent) 06/02/18 22:49 Hyaline Casts Present (Absent) A 06/02/18 22:49 Urine Glucose 2+(150 mg/dl) (Negative) A 06/02/18 22:49 Influenza A (Rapid) Negative (Negative) 06/02/18 14:32 Influenza B (Rapid) Negative (Negative) 06/02/18 14:32 - Objective Active Medications: Acetaminophen (Tylenol Tab*) 650 mg PO Q4H PRN PRN Reason: FEVER/PAIN Atorvastatin Calcium (Lipitor*) 40 mg PO QPM [facility] Last Admin: 06/05/18 17:55 Dose: 40 mg Citalopram Hydrobromide (Celexa Tab*) 20 mg PO DAILY [facility] Last Admin: 06/05/18 08:45 Dose: 20 mg Donepezil HCl (Aricept Tab*) 10 mg PO DAILY [facility] Last Admin: 06/05/18 08:45 Dose: 10 mg Enoxaparin Sodium (Lovenox(*)) 40 mg SUBCUT Q24H [facility] Last Admin: 06/05/18 18:00 Dose: 40 mg Hydralazine HCl (Apresoline Iv*) 5 mg IV SLOW PU Q6H PRN PRN Reason: BLOOD PRESSURE Losartan Potassium (Cozaar Tab*) 100 mg PO DAILY [facility] Last Admin: 06/05/18 08:45 Dose: 100 mg Memantine (Namenda Tab*) 5 mg PO DAILY [facility] Last Admin: 06/05/18 08:45 Dose: 5 mg Quetiapine Fumarate (Seroquel Tab*) 75 mg PO BEDTIME [facility] Last Admin: 06/05/18 19:28 Dose: 75 mg Vital Signs: Vital Signs: Temp Pulse Resp BP Pulse Ox 99.5 F 90 18 118/79 95 06/05/18 19:30 06/05/18 19:30 06/05/18 20:00 06/05/18 19:30 06/05/18 15:15 Patient Weight: Weight 85.275 kg Intake and Output: Intake & Output 06/03/18 06/04/18 06/05/18 06/06/18 06:59 06:59 06:59 06:59 Intake Total 2014 9303 478 1538 Output Total 475 Balance 1540 8528 986 5617 Weight 85.275 kg Intake: IV Fluids 2014 10 normal saline 15 10 Oral 0 9275 834 1224 Output: Urine 200 Mello 275 Other: Estimated Void Large Large Medium Date of Last Bowel [id number] Movement # Bowel Movements 0 0 0 1 Estimated Stool Amount Small Large Large # Voids 1 0 3 ADLs: Meal Record Start: 06/02/18 19: 37 Freq: DAILY@0900,1400,1800 Status: Active Protocol: Created 06/02/18 19:37 System (Rec: 06/02/18 19:37 System [id number]) Document 06/03/18 09:00 [id number] (Rec: 06/03/18 10:57 [id number] MED-C11) Document 06/03/18 14:00 [id number] (Rec: 06/03/18 14:09 [id number] MED-C09) Document 06/03/18 18:00 [id number] (Rec: 06/03/18 18:03 [id number] MED-C09) Document 06/04/18 09:00 [id number] (Rec: 06/04/18 17:06 [id number] MED-M18) Document 06/04/18 14:00 [id number] (Rec: 06/04/18 17:43 [id number] MED-C09) Document 06/04/18 18:00 [id number] (Rec: 06/04/18 21:17 [id number] MED-C05) Document 06/05/18 09:00 [id number] (Rec: 06/05/18 10:05 [id number] MED-C09) Document 06/05/18 14:00 [id number] (Rec: 06/05/18 14:42 [id number] MED-C11) Document 06/05/18 18:00 [id number] (Rec: 06/05/18 18:20 [id number] MED-C11) Intake and Output Start: 06/02/18 11: 06 Freq: Status: Active Protocol: Created 06/02/18 11:06 System (Rec: 06/02/18 11:06 System [id number]) Intake and Output Start: 06/02/18 19: 37 Freq: DAILY@0600,1400,2200 Status: Active Protocol: Created 06/02/18 19:37 System (Rec: 06/02/18 19:37 System [id number]-C15) Document 06/02/18 22:00 [id number] (Rec: 06/02/18 23:33 [id number] MED-C11) Document 06/03/18 05:44 [id number] (Rec: 06/03/18 05:45 [id number] MED-C02) Document 06/03/18 14:00 [id number] (Rec: 06/03/18 14:09 [id number] MED-C09) Document 06/03/18 22:00 [id number] (Rec: 06/03/18 23:27 [id number] MED-C11) Document 06/04/18 04:21 [id number] (Rec: 06/04/18 04:22 [id number] MED-C09) Document 06/04/18 14:00 [id number] (Rec: 06/04/18 17:43 [id number] MED-C09) Document 06/04/18 22:00 [id number] (Rec: 06/04/18 22:28 [id number] MED-C05) Document 06/05/18 06:00 [id number] (Rec: 06/05/18 06:21 [id number] MED-C09) Document 06/05/18 08:00 [id number] (Rec: 06/05/18 10:06 [id number] MED-C09) Document 06/05/18 14:00 [id number] (Rec: 06/05/18 14:42 [id number] MED-C11) Document 06/05/18 22:00 [id number] (Rec: 06/05/18 22:57 [id number] MED-C07) Eyes: No Scleral Icterus Ears/Nose/Mouth/Throat: Mucous Membranes Moist Neck: Trachea Midline Cardiovascular: NL Sounds; No Murmurs; No JVD, No Edema Abdominal: NL Sounds; No Tenderness; No Distention Extremities: No Edema Neurological: NL Muscle Strength and Tone, - - Alert, not oriented - Assessment Assessment: 77 yo male with severe dementia admitted with altered mental status hospice eligible - Plan Consult Plan (MU): Hospice Plan: Long discussion with about 's dementia and decline. We discussed placement options and is looking at [facility]. Physical therapy evaluation showed some improvement on 06/03 prior to first discharge. Pt is interested in having a hospice evaluation once he is done with [facility]. Pt has been very clear with in the past that he doesn't want life extending care given his dementia. He saw his mother with dementia.KPS50%, PPS 50%. MOLST form is on the chart and pt is DNR/DNI with comfort care option. Her goal is to try to keep him from coming back to the hospital and to keep him comfortable. - Time On Unit Date of Evaluation: 06/05/18 Hospice Consult Time in: 01:30 Hospice Consult Time Out: 03:00 Hospice Consult Time Total: 90 > 50% of Time Spend In Counseling or Coordinating Care: Yes
[2018-06-06] MEDS: Losartan TAB* 25 MG PO SCH (09:19)
[2018-06-06] MEDS: Memantine TAB* 5 MG PO SCH (09:20)
[2018-06-06] MEDS: Donepezil TAB* 5 MG PO SCH (09:20)
[2018-06-06] MEDS: Citalopram TAB* 20 MG PO SCH (09:20)
[2018-06-06] MEDS: Senna TAB PO SCH (11:18)
--- NOTE | 2018-06-06 16:01 | PN ---
Subjective Date of Service: 06/06/18 Interval History: Mr. Beth is resting in bed this morning and not able to provide any subjective data. No complaints from nursing. Family History: Unchanged from Admission Social History: Unchanged from Admission Past Medical History: Unchanged from Admission Objective Active Medications: Acetaminophen (Tylenol Tab*) 650 mg PO Q4H PRN FEVER/PAIN Atorvastatin Calcium (Lipitor*) 40 mg PO QPM BRAEDEN Citalopram Hydrobromide (Celexa Tab*) 20 mg PO DAILY BRAEDEN Donepezil HCl (Aricept Tab*) 10 mg PO DAILY BRAEDEN Enoxaparin Sodium (Lovenox(*)) 40 mg SUBCUT Q24H BRAEDEN Hydralazine HCl (Apresoline Iv*) 5 mg IV SLOW PU Q6H PRN BLOOD PRESSURE Losartan Potassium (Cozaar Tab*) 100 mg PO DAILY BRAEDEN Memantine (Namenda Tab*) 5 mg PO DAILY BRAEDEN Quetiapine Fumarate (Seroquel Tab*) 75 mg PO BEDTIME BRAEDEN Senna (Senokot Tab*) 1 tab PO DAILY [facility] Vital Signs - 8 hr 06/06/18 06/06/18 11:12 15:43 Temperature 98.1 F 99.9 F Pulse Rate 80 80 Respiratory 24 22 Rate Blood Pressure 127/59 123/59 (mmHg) O2 Sat by Pulse 92 97 Oximetry Oxygen Devices in Use Now: None Appearance: Elderly male laying in bed in NAD Eyes: No Scleral Icterus Ears/Nose/Mouth/Throat: Mucous Membranes Moist Neck: NL Appearance and Movements; NL JVP, Trachea Midline Respiratory: Symmetrical Chest Expansion and Respiratory Effort, Clear to Auscultation Cardiovascular: NL Sounds; No Murmurs; No JVD, RRR Abdominal: - - Distended, slightly tender to palpation throughout Extremities: No Edema Neurological: - - Arousable to voice Lines/Tubes/Other Access: Clean, Dry and Intact Peripheral IV Nutrition: Taking PO's Result Diagrams: 06/03/18 06:52 06/03/18 06:52 Assess/Plan/Problems-Billing Assessment: Mr. Beth is a 78 yo M with a PMH of dementia and HTN who was admitted on with delirium and weakness. - Patient Problems (1) Delirium Code(s): R41.0 - DISORIENTATION, UNSPECIFIED Comment: - Resolved - Possibly toxic metabolic encephalopathy though no inciting cause found - CT brain negative; no evidence of infection (2) Abdominal distension Code(s): R14.0 - ABDOMINAL DISTENSION (GASEOUS) Comment: - Mild tenderness to palpation - Xray yesterday showed some degree of colonic obstruction - Dr. Kapoor will speak with regarding possible treatment, though she has not been interested in invasive measures so will likely just require supportive care (3) Dementia Code(s): F03.90 - UNSPECIFIED DEMENTIA WITHOUT BEHAVIORAL DISTURBANCE Comment : - Continue Namenda, Seroquel (4) Hypertension Code(s): I10 - ESSENTIAL (PRIMARY) HYPERTENSION Comment: - Normotensive, SBP 120-130s - Continue losartan (5) HLD (hyperlipidemia) Code(s): E78.5 - HYPERLIPIDEMIA, UNSPECIFIED Comment: - Continue atorvastatin (6) DVT prophylaxis Comment: - Lovenox (7) DNR (do not resuscitate) Comment: Status and Disposition: Inpatient. leaning towards comfort measures, though we will continue his usual medications as long as he is tolerating PO intake. Will need placement at SNF as is unable to care for him at home. Attending: Krista Britt
[2018-06-06] MEDS: Atorvastatin* 40 MG TAB PO SCH (17:31)
[2018-06-06] MEDS: Enoxaparin(*) 40 MG/0.4 ML SYR SUBCUT SCH (17:32)
--- NOTE | 2018-06-06 18:29 | PN ---
Progress Note - Progress Note Date of Service: 06/06/18 Note: Spoke with pt's gave her results of the abd xray and she is opting for no surgery and no ng tube. According to he doesn't look like he is in pain but to consider prn pain med if he does have pain. She just wants him kept comfortable. Deciding about placement.
[2018-06-07] MEDS: Senna TAB PO SCH (10:00)
[2018-06-07] MEDS: Memantine TAB* 5 MG PO SCH (10:00)
[2018-06-07] MEDS: Donepezil TAB* 5 MG PO SCH (10:00)
[2018-06-07] MEDS: Citalopram TAB* 20 MG PO SCH (10:00)
[2018-06-07] MEDS: Losartan TAB* 25 MG PO SCH (10:00)
--- NOTE | 2018-06-07 12:33 | CONSULT ---
Consult Consult: WOUND CONSULT NOTE Date of Service: 06/07/2018 History: Interval History: Mr. Beth is a 78 yo male with PMH significant for dementia, HTN, and HLD who presented to the emergency room with concern for increased confusion and decline in ADLs as of the day prior to arrival. He was admitted to the hospital for delirium. Erythema and an intact blister was first noted to his buttocks on 06/06/18. Denies fever or chills. He reports that he has discomfort at this buttocks. Past Medical/Family/Social History: Family History: Unchanged from Admission Social History: Unchanged from Admission Past Medical History: Unchanged from Admission Objective: Active Medications: Acetaminophen (Tylenol Tab*) 650 mg PO Q4H PRN Reason: FEVER/PAIN Atorvastatin Calcium (Lipitor*) 40 mg PO QPM [facility] Citalopram Hydrobromide (Celexa Tab*) 20 mg PO DAILY [facility] Donepezil HCl (Aricept Tab*) 10 mg PO DAILY [facility] Enoxaparin Sodium (Lovenox(*)) 40 mg SUBCUT Q24H BRAEDEN Hydralazine HCl (Apresoline Iv*) 5 mg IV SLOW PU Q6H PRN Reason: BLOOD PRESSURE Losartan Potassium (Cozaar Tab*) 100 mg PO DAILY BRAEDEN Memantine (Namenda Tab*) 5 mg PO DAILY [facility]RA[facility] Quetiapine Fumarate (Seroquel Tab*) 75 mg PO BEDTIME BRAEDEN Senna (Senokot Tab*) 1 tab PO DAILY [facility] Vital Signs: 06/07/18 07:24 Temperature 97.8 F Temperature Temporal Artery Source Scan Pulse Rate 73 Respiratory 18 Rate Blood Pressure 124/72 (mmHg) Blood Pressure 83 Mean O2 Sat by Pulse 94 Oximetry Patient on Room Yes Air Exam: General: NAD, laying in bed Neuro: Alert and Oriented to Person Skin: Intact blister to sacrum - 1.5 cm x 1 cm. There is a erythema to the surrounding skin, this is blanchable. Data: Labs: 06/02/18 06/03/18 06/03/18 12:14 06:52 06:52 WBC 10.8 Hgb 14.1 Hct 42 Plt Count 185 Sodium 135 Potassium 4.0 Chloride 106 Carbon Dioxide 21 L BUN 17 Creatinine 1.05 Glucose 97 Total Protein 8.2 Albumin 3.6 Assessment/Plan: Mr. Beth is a 78 yo male with PMH significant for dementia, HTN, and HLD who presented to the emergency room with concern for increased confusion and decline in ADLs as of the day prior to arrival. He was admitted to the hospital for delirium. 1. Blister to sacrum. Recommend frequent turning and repositioning. Apply barrier cream. 2. Delirium and dementia. Supportive care. VTE PPX: Lovenox Diet: Heart Healhty diet. Code Status: DNR Disposition: Inpatient. Disposition per primary medicine team Time Spent: A total of 20 minutes was spent at bedside assessing wounds, measuring and photographing wounds. Attending: Dr. Camelia aG MD
--- NOTE | 2018-06-07 15:28 | PN ---
Subjective Date of Service: 06/07/18 Interval History: Mr. Beth is awake, but unable to provide any meaningful information. He mumbles to himself often. Denies any abd tenderness on palpation. Family not at bedside on my exam. Family History: Unchanged from Admission Social History: Unchanged from Admission Past Medical History: Unchanged from Admission Objective Active Medications: Acetaminophen (Tylenol Tab*) 650 mg PO Q4H PRN FEVER/PAIN Atorvastatin Calcium (Lipitor*) 40 mg PO QPM [facility] Citalopram Hydrobromide (Celexa Tab*) 20 mg PO DAILY [facility] Donepezil HCl (Aricept Tab*) 10 mg PO DAILY [facility] Enoxaparin Sodium (Lovenox(*)) 40 mg SUBCUT Q24H [facility] Hydralazine HCl (Apresoline Iv*) 5 mg IV SLOW PU Q6H PRN BLOOD PRESSURE Losartan Potassium (Cozaar Tab*) 100 mg PO DAILY [facility] Memantine (Namenda Tab*) 5 mg PO DAILY [facility] Quetiapine Fumarate (Seroquel Tab*) 75 mg PO BEDTIME BRAED[facility] Senna (Senokot Tab*) 1 tab PO DAILY [facility] Vital Signs - 8 hr 06/07/18 06/07/18 06/07/18 07:24 08:00 14:25 Temperature 97.8 F 97.2 F Pulse Rate 73 75 Respiratory 18 20 16 Rate Blood Pressure 124/72 117/53 (mmHg) O2 Sat by Pulse 94 93 Oximetry Oxygen Devices in Use Now: None Appearance: Elderly male laying in bed in NAD Eyes: No Scleral Icterus Ears/Nose/Mouth/Throat: Mucous Membranes Moist Neck: NL Appearance and Movements; NL JVP, Trachea Midline Respiratory: Symmetrical Chest Expansion and Respiratory Effort, Clear to Auscultation Cardiovascular: NL Sounds; No Murmurs; No JVD, RRR Abdominal: NL Sounds; No Tenderness; No Distention Extremities: No Edema Neurological: - - Awake and alert Lines/Tubes/Other Access: Clean, Dry and Intact Peripheral IV Nutrition: Taking PO's Result Diagrams: 06/03/18 06:52 06/03/18 06:52 Assess/Plan/Problems-Billing Assessment: Mr. Beth is a 78 yo M with a PMH of dementia and HTN who was admitted on with delirium and weakness. - Patient Problems (1) Comfort measures only status Code(s): Z51.5 - ENCOUNTER FOR PALLIATIVE CARE Comment: - Family opting for comfort care after conversation with Dr. Kapoor - Comfort measures indicated on MOLST - Family does not desire treatment for colonic distension with possible obstruction - Continue losartan, Namenda, Aricept, Seroquel, citalopram for comfort as long as he is still able to swallow safely (2) DNR (do not resuscitate) Comment: Status and Disposition: Inpatient, comfort care. Anticipate d/c to SNF when bed is secured. Attending: Krista Britt
[2018-06-07] MEDS: QUEtiapine TAB* 25 MG PO SCH ×2 (22:17)
[2018-06-08] MEDS: Citalopram TAB* 20 MG PO SCH (09:20)
[2018-06-08] MEDS: Losartan TAB* 25 MG PO SCH (09:20)
[2018-06-08] MEDS: Donepezil TAB* 5 MG PO SCH (09:20)
[2018-06-08] MEDS: Memantine TAB* 5 MG PO SCH (09:20)
[2018-06-08] MEDS: Senna TAB PO SCH (09:21)
--- NOTE | 2018-06-08 11:58 | PN ---
Subjective Date of Service: 06/08/18 Interval History: Mr. Beth is sleeping, arousable to voice, but unable to answer any questions. His is at bedside. She feels as though he appears comfortable and has no complaints or concerns regarding his care. She is agreeable to d/c tomorrow to [facility]. Family History: Unchanged from Admission Social History: Unchanged from Admission Past Medical History: Unchanged from Admission Objective Active Medications: Acetaminophen (Tylenol Tab*) 650 mg PO Q4H PRN FEVER/PAIN Citalopram Hydrobromide (Celexa Tab*) 20 mg PO DAILY [facility] Donepezil HCl (Aricept Tab*) 10 mg PO DAILY [facility] Hydralazine HCl (Apresoline Iv*) 5 mg IV SLOW PU Q6H PRN BLOOD PRESSURE Losartan Potassium (Cozaar Tab*) 100 mg PO DAILY [facility] Memantine (Namenda Tab*) 5 mg PO DAILY [facility] Quetiapine Fumarate (Seroquel Tab*) 75 mg PO BEDTIME [facility]RAED[facility] Senna (Senokot Tab*) 1 tab PO DAILY [facility] Vital Signs - 8 hr 06/08/18 06/08/18 08:00 08:32 Temperature 98.1 F Pulse Rate 80 Respiratory 18 Rate Blood Pressure 119/66 (mmHg) O2 Sat by Pulse 97 Oximetry Oxygen Devices in Use Now: None Appearance: Elderly male laying in bed in NAD Eyes: No Scleral Icterus Ears/Nose/Mouth/Throat: - - Dry membranes Neck: NL Appearance and Movements; NL JVP, Trachea Midline Respiratory: Symmetrical Chest Expansion and Respiratory Effort, Clear to Auscultation Cardiovascular: NL Sounds; No Murmurs; No JVD, RRR Abdominal: - - Distended, nontender Extremities: No Edema Neurological: - - Awakens to voice Lines/Tubes/Other Access: Clean, Dry and Intact Peripheral IV Result Diagrams: 06/03/18 06:52 06/03/18 06:52 Assess/Plan/Problems-Billing Assessment: Mr. Beth is a 78 yo M with a PMH of dementia and HTN who was admitted on with delirium and weakness. - Patient Problems (1) Comfort measures only status Code(s): Z51.5 - ENCOUNTER FOR PALLIATIVE CARE Comment: - Family opting for comfort care after conversation with Dr. Kapoor - Comfort measures indicated on MOLST - Family does not desire treatment for colonic distension with possible obstruction - Continue losartan, Namenda, Aricept, Seroquel, citalopram for comfort as long as he is still able to swallow safely (2) DNR (do not resuscitate) Comment: Status and Disposition: Inpatient, comfort care. Anticipate d/c to [facility] tomorrow. Attending: Eric Schwartz
--- NOTE | 2018-06-08 20:52 | DS ---
CC: Dr. Kvng Leslie; [facility] * DISCHARGE SUMMARY: DATE OF ADMISSION: 06/02/18 DATE OF DISCHARGE: 06/09/18 (this report is being dictated in advance). PRIMARY CARE PROVIDER: Dr. Kvng Leslie ATTENDING PHYSICIAN: Dr. Eric Schwartz * (dictated by Katie Gonzalez NP) PRIMARY DIAGNOSES: 1. Delirium, suspected toxic metabolic encephalopathy of unknown etiology. 2. Abdominal distention, some degree of colonic obstruction. SECONDARY DIAGNOSES: 1. Dementia. 2. Hypertension. 3. Hyperlipidemia. STUDIES WHILE IN THE HOSPITAL: 1. Brain CT on 06/02/18 reads as central and cortical atrophy. There is no evidence of intracranial mass or hemorrhage. 2. EKG on 06/02/18 showed normal sinus rhythm at the rate of 87, Q waves present in III. I will note this EKG is of poor quality due to artifact. 3. Chest x-ray on 06/02/18 reads as no radiographic evidence for acute cardiopulmonary abnormality on this portable chest x-ray. 4. Abdomen x-ray on 06/05/18 reads as distention with mild dilation of the colon extending to the rectum, suggestive of some degree of distal colonic obstruction. HISTORY OF PRESENT ILLNESS AND HOSPITAL COURSE: Mr. Beth is a 78-year-old male with past medical history of dementia; hypertension; hyperlipidemia; and prostate cancer, status post prostatectomy, who presented to the emergency room on 06/02/18 with complaints of altered mental status and weakness. Please see the history and physical by Gabriella Flores NP,for complete summary of the events leading up to this hospitalization. In short, the patient has dementia at baseline, though the patient's noted that he was more confused than usual and requiring more assistance with mobility. He was not responding as he typically would and had poor oral intake. In the emergency room, he had imaging as noted above. He had lab work, which were essentially unremarkable and vital signs were stable. The patient was admitted by the hospitalist service for altered mental status of unknown etiology. There initially was concern for infection, but ultimately there was no evidence to report that. His weakness was felt to be secondary to his altered mental status and general decline in health. Ultimately, the patient's was agreeable to a palliative care consult and the patient was seen in consultation by Dr. Kapoor, who noted that the patient was eligible for hospice due to severe dementia, the was agreeable to this, and requested comfort measures only going forward. The patient was noted to have some abdominal distention on 06/05/18 and an abdomen x- ray was done, of which the results are noted above. The patient's was notified of the results of his x-ray and did not wish to pursue any further treatment or investigation. The patient has been awaiting a bed at a senior care facility. He was signed on with hospice. As of today , he is resting quietly in bed. He is arousable, though is not able to communicate, he frequently mumbles to himself, but is very calm and is cooperative with taking his medications. The patient's is agreeable for hospice sign-on at a senior care facility. Mr. Beth is stable for discharge today. Vital signs are as follows: Temp 98.0 , heart rate 83, respiratory rate 22, oxygen saturation 94% on room air, blood pressure 174/92. DISCHARGE MEDICATIONS: New medication: 1. Acetaminophen 650 mg p.o. q.4 hours p.r.n. fever/pain. Continued medications: 1. Aricept 10 mg p.o. daily. 2. Escitalopram 10 mg p.o. daily. 3. Irbesartan 300 mg p.o. daily. 4. Namenda 5 mg p.o. daily. 5. Seroquel 75 mg p.o. daily. 6. Rosuvastatin 20 mg p.o. daily. DISCHARGE PLAN: Mr. Beth will be discharged to [facility] for plan to sign on with hospice. Activity will be as tolerated. Diet will be regular as tolerated. Medications are noted above. The patient may continue his usual medications as these will provide comfort. He can receive these medications until he is no longer able to swallow safely. He will need to follow up with hospice and the provider at [facility]. He should return to the emergency room for any new or worsening symptoms that are not adequately managed by hospice care. This is a summarized report of a complex medical history and hospital stay. For further details, please see the entire medical record. TIME SPENT: Approximately 35 minutes was spent on this discharge. KATIE NOMAN, [employer]CRE[employer] MANAGER [id number]/[facility] #: [id number] [facility]ALLaura
[2018-06-09] MEDS: QUEtiapine TAB* 25 MG PO SCH (00:35)
[2018-06-09 06:56] VITALS: BP 112/48
[2018-06-09] MEDS: Losartan TAB* 25 MG PO SCH (10:27)
[2018-06-09] MEDS: Senna TAB PO SCH (10:28)
[2018-06-09] MEDS: Donepezil TAB* 5 MG PO SCH (10:28)
[2018-06-09] MEDS: Citalopram TAB* 20 MG PO SCH (10:28)
[2018-06-09] MEDS: Memantine TAB* 5 MG PO SCH (10:28)
== END 2018-06-09 12:30 | DRG 884 ==
LOC: ED 10:51 → MED 14:32 → OBSVTOIN 06-03 14:32
PROVIDERS: ADMIT Student in an Organized Health Care Education/Training Program; ATTEND Internal Medicine
DX: F03.91 Unspecified dementia, unspecified severity, with behavioral disturbance (principal); G92 Toxic encephalopathy; F05 Delirium due to known physiological condition; K56.609 Unspecified intestinal obstruction, unspecified as to partial versus complete obstruction; E86.0 Dehydration; D72.829 Elevated white blood cell count, unspecified; I10 Essential (primary) hypertension; E78.5 Hyperlipidemia, unspecified; R09.02 Hypoxemia; R06.82 Tachypnea, not elsewhere classified; Z66 Do not resuscitate; Z51.5 Encounter for palliative care; R14.0 Abdominal distension (gaseous); Z85.46 Personal history of malignant neoplasm of prostate; Z79.899 Other long term (current) drug therapy; Z82.49 Family history of ischemic heart disease and other diseases of the circulatory system; Z80.42 Family history of malignant neoplasm of prostate; Z84.89 Family history of other specified conditions; S30.820A Blister (nonthermal) of lower back and pelvis, initial encounter; X58.XXXA Exposure to other specified factors, initial encounter; Y92.9 Unspecified place or not applicable
CPT/HCPCS: 36415; 70450; 71045; 74018; 80048; 80053; 81003; 81015; 82607; 83605; 83735; 84425; 84443; 84484; 85025; 87086; 93005; 99283; A9270-GY; G0378; G8978-GP-CJ; G8979-GP-CJ; G8980-GP-CJ; J1650